=== PATIENT | male | born 1945 | race Caucasian/White ===

== ENCOUNTER 2017-02-03 06:09 | Day surgery (SDC) | payer OTHER ==
[~2017-02-03] VITALS: Ht 185.4 cm; Wt 96.6 kg
[~2017-02-03 06:09] MED LIST: ASPIR 8181 M1 PO; ASPIRIN EC81 M1 PO; FISH OIL 1,001000 M2 PO; FLOMAX PO; FLOMAX0.4 MG PO; LOVASTATIN 20 M20 MG PO; MULTIVITAMIN PO; NORCO 5-325 TA1 EACH PO; OSTEO BI-FLEX1 EAC2 PO; OSTEO BI-FLEX1 EACH PO; VIAGRA100 MG PO; VITAMIN E; VITAMIN E400 UNIT PO; VITAMINC500 PO
[2017-02-03 09:32] VITALS: BP 131/83
[2017-02-03 13:17] VITALS: BP 131/83
== END 2017-02-03 14:58 | disposition home or self-care (01) ==
LOC: OR 06:09 → TBA 06:09 → OR 10:49
DX: K40.91 Unilateral inguinal hernia, without obstruction or gangrene, recurrent (principal); E78.00 Pure hypercholesterolemia, unspecified; Z88.2 Allergy status to sulfonamides; Z96.642 Presence of left artificial hip joint; Z98.890 Other specified postprocedural states; Z79.82 Long term (current) use of aspirin
CPT/HCPCS: 50010; 50101; 50386; 50403; 54111; 56524; 56525; 62110; 62900; 64037; 70005